=== PATIENT | male | born 2000 | race Caucasian/White ===

== ENCOUNTER 2020-11-06 00:57 | Emergency (ER) | payer OTHER, SELFPAY ==
[2020-11-06 01:12] VITALS: BP 138/80; PULSE 80; RESP 16; TEMP 36.7; O2SAT 99
--- NOTE | 2020-11-06 01:30 | DI.RAD_ITS ---
Exam(s) XR CLAVICLE LT EXAM: XR CLAVICLE LT CLINICAL HISTORY: s/p fall, pain/swelling lateral clavicle. TECHNIQUE: 2D digital imaging was performed. COMPARISON: No exams were available for comparison FINDINGS: There are no fractures but there is dislocation of the AC joint. Distance in height between the acro mion and the clavicular head is 15 millimeters. Glenohumeral joint remains intact. No rib fractures . There appears to be probable scoliosis in the thoracic spine. IMPRESSION: Grade 3 AC joint separation. DATA REPOSITORY: RADIATION DOSE DELIVERED:
--- NOTE | 2020-11-06 01:42 | ED.GENADUL_ITS ---
Discharge Plan Disposition Patient Disposition: HOME Condition: Stable Discharge Details Clinical Impression: AC joint dislocation Primary Care Provider: None,None ED Provider: Elyssa Velásquez Home Meds and New Rx's Prescriptions: No Action No Known Home Meds RF: 0 Discharge Instructions Instructions: Acromioclavicular Separation (ED) Additional Instructions: You have a separation of your AC joint of you shoulder. Please encourage rest, ice, elevation. Tylenol and/or Ibuprofen as needed for discomfort. Please continue with sling until reevaluated by orthopedics. Please call orthopedics near your home tomorrow to schedule appointment. Your PCP can help arrange for follow up as well. Please bring disc with images to your appointment. If you develop new/worsening symptoms please seek care urgently once again. Discharge Data Discharge Date/Time-TO BE ENTERED AT DEPARTURE: 11/06/20 03:24 Medical Decision Making <Elyssa Velásquez DO - Last Filed: 11/08/20 10:52> 20-year-old male presents with left shoulder pain after a slip and fall hitting his shoulder on the ground prior to arrival. Patient has a deformity with prominence, edema and tenderness at the lateral clavicle in the area of the AC joint. Shoulder normal to inspection without pain or tenderness. He is neurovascularly intact. There are no open wounds. X-ray notes a grade 3 AC separation. Patient was seen and evaluated by me and discharged by NEDRA Arnold during high volume and acuity in the emergency department. Patient was placed in a sling. He declined any pain medication here and for home. Patient is visiting from [place] and was advised to call in orthopedics near home tomorrow for follow-up. Usual and customary return precautions given prior to discharge. Medical Records Medical records reviewed: Yes I reviewed the patient's medical records. Imaging Data Radiologic Study: Radiologist's impression: XR Left Clavicle, Complete Exam date and time: 11/06/2020 1:42 AM Age: 20 years old Clinical indication: Pain and injury or trauma; Blunt trauma (contusions or hematomas); Shoulder; Left; Injury details: S/P fall, pain/swelling lateral clavicle TECHNIQUE: Imaging protocol: XR Left clavicle complete. Views: Any number of views. COMPARISON: No relevant prior studies available. FINDINGS: Bones/joints: No evidence of fracture. Acromion is subluxed inferior to the clavicular head, approximately 15 mm. The coracoclavicular space is wide. The glenohumeral joint remains located. Visualized left ribs are clear. Soft tissues: No evidence of soft tissue air or radiopaque foreign body. IMPRESSION: Grade 3 acromioclavicular separation. <NEDRA Gilliam - Last Filed: 11/06/20 22:56> Due to acuity of the department, I assisted with discharge of this patient. Please see Dr. Cummings note. Reviewed XR, patient has AC joint dislocation. Patient fitted with sling. Encouraged RICE. Discussed pain management. Discussed return precautions. He is from [place], disc sent home with images. He will call orthopedics tomorrow to schedule f/u appointment. All of his questions andr concerns were addressed, he is in agreement with this plan. HPI <Elyssa Velásquez DO - Last Filed: 11/08/20 10:52> General Mode of arrival: ambulatory . Date/Time Provider Initiated Documentation: 11/06/20 01:16 . Limitations to Documentation: no limitations . Information obtained by: patient . HPI Narrative: Patient is a 20-year-old male who presents with left shoulder pain after tripping and landing on his left oulder prior to arrival. Patient states he was outside with friends around a fire when he tripped and hit his left shoulder on the ground. He is complaining of pain mainly in his lateral clavicle and trapezius. He denies any pain in his left shoulder, or remainder of upper extremity. He denies any chest pain or difficulty breathing. Related Data Home Medications Medication Instructions Recorded Confirmed Unknown [No Known Home Meds] 11/06/20 11/06/20 Allergies Allergy/AdvReac Type Severity Reaction Status Date / Time No Known Allergies Allergy Unverified 11/06/20 01:15 General Stated Complaint: Orthopedic WERO: 3 Review of Systems <Elyssa Velásquez DO - Last Filed: 11/08/20 10:52> All systems reviewed & are unremarkable except as noted in HPI and below Constitutional Constitutional: Reports as per HPI, Denies chills and Denies fever(s) Eyes Eyes: Denies blurry vision ENT Ears, Nose, Mouth, and Throat: Denies dizziness, Denies sore throat and Denies throat swelling Cardiovascular Cardiovascular: Denies chest pain and Denies dyspnea Respiratory Respiratory: Denies cough and Denies dyspnea Gastrointestinal Gastrointestinal: Denies abdominal pain, Denies diarrhea and Denies vomiting Genitourinary Genitourinary: Denies hematuria and Denies dysuria Musculoskeletal Musculoskeletal: Denies back pain, Denies numbness and Reports other (L shoulder pain) Integumentary/Breasts Skin/Breast: Denies lesions and Denies rash Neurologic Neurologic: Denies dizziness, Denies localized weakness and Denies numbness Allergic/Immunologic Allergic/Immunologic: Denies throat swelling PFSH <Elyssa Velásquez DO - Last Filed: 11/08/20 10:52> Medical History (Updated 11/06/20 @ 04:40 by Elyssa Velásquez DO) No significant past medical history Surgical History (Updated 11/06/20 @ 04:40 by Elyssa Velásquez DO) No significant past surgical history Social History Smoking/Tobacco Use Status: Current every day Tobacco Type: e-cigarettes Smoking risk assessment performed?: Yes Alcohol Intake: never Substance use type: does not use Do you feel safe at home: Yes Do you feel safe in your relationship?: Yes Exam <Elyssa Velásquez DO - Last Filed: 11/08/20 10:52> Const General: cooperative, healthy appearing and no acute distress HENUT Head: normal to inspection Mouth: oral mucosae normal Eyes General: appearance normal, both eyes and all related structures Neck Neck: normal visual inspection Resp Effort & Inspection: normal respiratory effort and able to speak in complete sentences Cardio Rate: regular rate Skin General skin exam: no rashes or lesions noted Neuro General: patient alert, patient awake and patient oriented x3 Motor: muscle tone normal throughout Extrem Shoulder/upper arm images: 1. 5x5cm area of edema and tenderness overlying trapezius muscle and lateral clavicle. No tenting of skin noted. No open wounds. No tenderness to palpation to remainder of clavicle. Other: Normal range of motion at left shoulder, elbow or wrist without deformity or evidence of trauma. Left radial and ulnar pulse intact. Psych Appearance: grossly normal Affect: normal affect Course <Elyssa Velásquez DO - Last Filed: 11/08/20 10:52> Vital Signs Vital signs: Vital Signs Temperature 98.1 F 11/06/20 01:12 Pulse 80 11/06/20 01:12 Respiratory Rate 16 11/06/20 01:12 Blood Pressure 138/80 11/06/20 01:12 Pulse Oximetry 99 11/06/20 01:12 Temperature 98.1 F 11/06/20 01:12 Temperature Source Temporal Artery Scan 11/06/20 01:12 Pulse 80 11/06/20 01:12 Respiratory Rate 16 11/06/20 01:12 Respiratory Effort Non-Labored 11/06/20 01:17 Blood Pressure 138/80 11/06/20 01:12 Blood Pressure Position Sitting 11/06/20 01:12 Pulse Oximetry 99 11/06/20 01:12 Oxygen Delivery Method Room Air 11/06/20 01:12 Oxygen Flow Rate 0 11/06/20 01:12 Pain Level 6 11/06/20 01:19
--- NOTE | 2020-11-06 03:22 | DI.VRAD_ITS ---
PROCEDURE INFORMATION: Exam: XR Left Clavicle, Complete Exam date and time: 11/06/2020 1:42 AM Age: 20 years old Clinical indication: Pain and injury or trauma; Blunt trauma (contusions or hematomas); Shoulder; Left; Injury details: S/P fall, pain/swelling lateral clavicle TECHNIQUE: Imaging protocol: XR Left clavicle complete. Views: Any number of views. COMPARISON: No relevant prior studies available. FINDINGS: Bones/joints: No evidence of fracture. Acromion is subluxed inferior to the clavicular head, approximately 15 mm. The coracoclavicular space is wide. The glenohumeral joint remains located. Visualized left ribs are clear. Soft tissues: No evidence of soft tissue air or radiopaque foreign body. IMPRESSION: Grade 3 acromioclavicular separation. Dictated and Authenticated by: Portillo Wright MD. Ordering:DAVID Bergeron MD
== END 2020-11-06 03:24 | disposition home or self-care (01) ==
PROVIDERS: Emergency Provider Physician Assistant
DX: S43.122A Dislocation of left acromioclavicular joint, 100%-200% displacement, initial encounter (principal); W18.30XA Fall on same level, unspecified, initial encounter
CPT/HCPCS: 23540; 73000